=== PATIENT | male | born 1975 | race Caucasian/White ===

== ENCOUNTER 2017-09-04 17:26 | Emergency (ER) | payer SELFPAY ==
[2017-09-04 17:27] VITALS: BP 147/79; PULSE 63; RESP 16; TEMP 36.9; O2SAT 98; BMI 26.6
--- NOTE | 2017-09-04 17:59 | ED.VISSUMM ---
- ER Visit Summary Date of Service: 09/04/17 Chief Complaint: Left shoulder pain History of Present Illness: The patient is a 41 M with no primary care physician. He is right-hand dominant. 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 Reports that he has had pain in his left shoulder for approximately 2 months. He denies any specific injury. No fall or MVA. He reports that he had been working extra hours and really pushing himself prior to the onset of this. He describes it as a sharp pain that is 10 out of 10 with abduction and 1 out of 10 at rest. He is taking ibuprofen consistently for a month without relief. He is also used Biofreeze and icy hot without relief. Patient reports that he has a history of varicose veins. He states that when he gets out of the shower the varicose veins on his medial right thigh are dilated. However, once he begins walking around or lays down this resolves. He denies any pain in his calf. No ankle swelling. No recent travel. No chest pain or shortness of breath. Physical Examination: Vitals: Stable. Afebrile. General: Well-nourished and well-developed. Head: Normocephalic atraumatic. Neck: Supple, no lymphadenopathy. No JVD. Nontender. Cardiovascular: Regular rate and rhythm. No murmurs. Respiratory: No respiratory distress. Clear to auscultation bilaterally. Abdominal: Soft, nontender, nondistended, normal bowel sounds. No guarding, rebound, or peritoneal signs. Back: Nontender. Extremities: Mild tenderness palpation to the most proximal portion of his left humerus. There is no pain in the bicipital groove. There is no overlying erythema or warmth to suggest a septic joint. He has increased pain with abduction that is active. Essentially no pain with passive abduction. He also has pain with external rotation. He has a 2+ radial pulse. Normal sensation to light touch throughout his hand. He does have palpable varicose veins on the medial right thigh. There is no palpable thrombosis. He has no tenderness in his calf. There is no edema. Skin: Normal color, no rash. Neurologic: Alert and oriented ?3. Cranial nerves II through XII are intact. Normal strength and sensation. Psych: Normal affect. Test Results: Left shoulder x-ray shows no acute disease. Emergency Department Course and Treatment: Patient refused pain medications and is resting comfortably. Treatment Plan: He will be given a prescription for 20 Kinta. Patient will be discharged instructions to follow-up with Dr. Lee within a week for another exam. I discussed them the likelihood of a rotator cuff injury and the possibility of physical therapy and/or MRI. Return to the emergency department for any worsening symptoms. Disposition: To home in improved and stable condition. Impression: 1. Left shoulder pain, chronic. 2. Varicose veins. This note was generated with [employer] dictation software. It may contain incorrect words, spelling, and punctuation that were not noted in review of the chart prior to signing ED Disposition - Plan for ED Patient: Chief Complaint: Upper Extremity Injury Instructions: ED Shoulder Pain [facility] Prescriptions: Hydrocodone Bitart/Apap 5-325 [Kinta 5/325] 1 - 2 tablet PO Q4H PRN PRN 5 Days #20 tablet PRN Reason: Pain Referrals: Rickie Lee DO [STAFF PHYSICIAN] - 1 Week
--- NOTE | 2017-09-04 18:12 | RAD_ITS ---
STUDY: X-RAY - LEFT SHOULDER REASON FOR EXAM: Male, 41 years old. Left shoulder pain TECHNIQUE: 4 view(s) of the shoulder. COMPARISON: None. FINDINGS: Normal glenohumeral articulation. Normal acromioclavicular joint. Normal acromion. Normal humeral head and visualized proximal humerus. The soft tissue structures are unremarkable. Normal visualized pulmonary apex. RAD/Shoulder min 2 Views IMPRESSION: Normal x-ray examination of the shoulder. Electronically Signed: Catalino Quevedo MD at 18:28 EDT , Service support ,
--- NOTE | 2017-09-04 18:21 | ED.DCSUM_ITS ---
- ER Visit Summary Date of Service: 09/04/17 Chief Complaint: Left shoulder pain History of Present Illness: The patient is a 41 M with no primary care physician. He is right-hand dominant. 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 Reports that he has had pain in his left shoulder for approximately 2 months. He denies any specific injury. No fall or MVA. He reports that he had been working extra hours and really pushing himself prior to the onset of this. He describes it as a sharp pain that is 10 out of 10 with abduction and 1 out of 10 at rest. He is taking ibuprofen consistently for a month without relief. He is also used Biofreeze and icy hot without relief. Patient reports that he has a history of varicose veins. He states that when he gets out of the shower the varicose veins on his medial right thigh are dilated. However, once he begins walking around or lays down this resolves. He denies any pain in his calf. No ankle swelling. No recent travel. No chest pain or shortness of breath. Physical Examination: Vitals: Stable. Afebrile. General: Well-nourished and well-developed. Head: Normocephalic atraumatic. Neck: Supple, no lymphadenopathy. No JVD. Nontender. Cardiovascular: Regular rate and rhythm. No murmurs. Respiratory: No respiratory distress. Clear to auscultation bilaterally. Abdominal: Soft, nontender, nondistended, normal bowel sounds. No guarding, rebound, or peritoneal signs. Back: Nontender. Extremities: Mild tenderness palpation to the most proximal portion of his left humerus. There is no pain in the bicipital groove. There is no overlying erythema or warmth to suggest a septic joint. He has increased pain with abduction that is active. Essentially no pain with passive abduction. He also has pain with external rotation. He has a 2+ radial pulse. Normal sensation to light touch throughout his hand. He does have palpable varicose veins on the medial right thigh. There is no palpable thrombosis. He has no tenderness in his calf. There is no edema. Skin: Normal color, no rash. Neurologic: Alert and oriented ?3. Cranial nerves II through XII are intact. Normal strength and sensation. Psych: Normal affect. Test Results: Left shoulder x-ray shows no acute disease. Emergency Department Course and Treatment: Patient refused pain medications and is resting comfortably. Treatment Plan: He will be given a prescription for 20 Mikado. Patient will be discharged instructions to follow-up with Dr. Lee within a week for another exam. I discussed them the likelihood of a rotator cuff injury and the possibility of physical therapy and/or MRI. Return to the emergency department for any worsening symptoms. Disposition: To home in improved and stable condition. Impression: 1. Left shoulder pain, chronic. 2. Varicose veins. This note was generated with [employer] dictation software. It may contain incorrect words, spelling, and punctuation that were not noted in review of the chart prior to signing ED Disposition - Plan for ED Patient: Chief Complaint: Upper Extremity Injury Instructions: ED Shoulder Pain [facility] Prescriptions: Hydrocodone Bitart/Apap 5-325 [Mikado 5/325] 1 - 2 tablet PO Q4H PRN PRN 5 Days # 20 tablet PRN Reason: Pain Referrals: Rickie Lee DO [STAFF PHYSICIAN] - 1 Week
[2017-09-04 18:49] VITALS: BP 145/72; PULSE 68; RESP 16; O2SAT 98
== END 2017-09-04 18:45 | disposition home or self-care (01) ==
PROVIDERS: Emergency Provider Emergency Medicine
DX: M25.512 Pain in left shoulder (principal); G89.29 Other chronic pain; I83.91 Asymptomatic varicose veins of right lower extremity
CPT/HCPCS: 73030; 99282

== ENCOUNTER 2019-06-18 10:00 | Emergency (ER) | payer SELFPAY ==
[2019-06-18 10:01] VITALS: BP 205/75; PULSE 46; RESP 18; TEMP 36.1; O2SAT 100; BMI 25.7
[2019-06-18] MEDS: LORazepam 0.5 MG Tablet PO (10:17)
--- NOTE | 2019-06-18 10:38 | ED.DCSUM_ITS ---
History of Present Illness Chief Complaint: Anxiety Informant: Patient Onset: Hours Context: Sudden Onset Timing: Continuous Quality: Mind racing, anxiousness, jitteriness Location: Total body Current Severity: Severe Maximum Severity: Severe Worsened by: Nothing Relieved by: Nothing Associated Symptoms: Palpitations restlessness Narrative: Patient is a 43-year-old male who was seen last evening at outside facility for evaluation of his lower lip incision site. He was diagnosed with skin cancer. He states after going home. He became jittery, mind racing, restlessness and inability to sleep. He states this intermittently happens. He was on anti- anxiolytic. He has not taken an anti-anxiolytic in 1 year. He denies headache. He denies double vision, partial loss or loss of vision. He states he had slight blurred vision driving home. He cannot recall whether it was monocular by ocular. He did not have a headache. He denies trouble with speech or swallowing. He denies neck pain or neck stiffness. He denies motor weakness. Denies problems with balance. He denies chest discomfort. He does report report intermittent shortness of breath. He denies history of hypertension. He states he is very active and may be the reason why his heart rate is low. He is presently going through a divorce. He denies smoking presently. He states he was a former smoker. He rarely has alcohol. And he did admit to prior use of marijuana. He states he has to pay for his own medical care. Prior similar symptoms: Yes Recent Illness/Hospitalization: Yes - Past Medical History (1) Anxiety disorder Status: Acute (2) Skin cancer Status: Acute Past Medical History - Allergies and Home Meds Allergies/Adverse Reactions: Allergies No Known Allergies Allergy (Verified 06/18/19 10:01) Primary Care Physician: Care Physician,No Primary [Primary Care Provider] - Prior records reviewed: Yes Surgical History: - - Recent excision of facial skin cancer Lives: Alone Smoking Status: Former smoker Alcohol: Rare Drugs: - - Previously documented Review of Systems General: Denies: Chills, Fever, Sweats Eyes: Reports: Blurred Vision - bilaterally. Denies: Visual changes - bilaterally, Diplopia ENT: Denies: Rhinorrhea, Sore throat Cardiovascular: Denies: Chest pain, Palpitations Respiratory: Denies: Dyspnea, Cough, Dyspnea on exertion Gastrointestinal: Denies: Abdominal pain, Nausea, Vomiting, Diarrhea, Melena, Hematochezia Genitourinary: Denies: Dysuria, Hematuria, Frequency Musculoskeletal: Denies: Myalgias, Arthralgias, Neck pain, Back pain, Swelling, Extremity Pain Skin: Denies: Rash, Wounds Neurological: Denies: Headache, Weakness, Parasthesia, Numbness, -, - Psych: Reports: Anxiety. Denies: Depression, Suicidal thoughts, Suicidal ideations, -, - Hematologic: Denies: Easy bruising, Easy bleeding Physical Exam Vital Signs/Narrative: Vital Signs Temp Pulse Resp BP Pulse Ox 06/18/19 10:01 97.0 F L 46 L 18 205/75 H 100 Inital Vital Signs reviewed: Yes General: Well nourished, Well developed, Acute Distress Head: Normocephalic, Atraumatic Eyes: Perrl, EOMI. Negative for: Pale conjunctiva, Scleral icterus ENT: Moist mucous membranes, No rhinorrhea, TM's clear, - - Incision site well- healed with sutures in place and no evidence of infection. Neck: Supple, Nontender, No lymphadenopathy, No JVD Cardiovascular: Regular rhythm, No murmurs, Bradycardia Respiratory: No distress, CTA bilaterally, Chest nontender Abdomen: Soft, Nontender, Nondistended, Normal bowel sounds Back: Negative for: Nontender, Normal Inspection Extremities: Nontender, No edema Skin: Normal color, No rash, No Trauma. Negative for: Cyanosis, Diaphoresis, Jaundice Neurological: Alert, Oriented x3, Cranial nerves II-XII grossly intact, Normal Strength, Normal Sensation Psychological: Depressed, Tearful, - - Anxious nervous Diagnostic/Tx/Re-eval - Medical Decision Making Patient was treated with Ativan. Will reassess in 1 hour Was reassessed at 1100. He is no longer crying. He is no longer pacing. He states he feels much better. Plan is referral to crisis center. Consult to case management for follow-up and prescription for Tranxene. ED Disposition - Plan for ED Patient: Disposition: Home or Assisted Living Diagnosis: Panic attack Instructions: Panic Attack Prescriptions: Clorazepate [Tranxene] 7.5 mg PO TID #20 tab Prescription Printed Referrals: Care Physician,No Primary [Primary Care Provider] - Counseling,Center [GROUP OF PHYSICIANS] - As soon as possible
[2019-06-18 11:16] VITALS: BP 140/89; PULSE 45; RESP 17; O2SAT 96
--- NOTE | 2019-06-19 10:35 | CM.ED ---
SOCIAL WORK INFORMANT: DR. PETERS REASON FOR CONSULT: FOLLOW UP ON PATIENT'S VISIT ON 06/18/19 FOR ANXIETY. RECEIVED ORDER FROM DR. PETERS TO FOLLOW UP AND ASSIST WITH REFERRAL TO THE [facility]SELING CENTER. TELEPHONE CALL MADE TO PATIENT. INTRODUCED THIS WORKER'S ROLE AND REASON FOR FOLLOW UP. PATIENT IN AGREEMENT FOR THIS WORKER TO CALL AND ASSIST WITH REFERRAL TO THE [facility]SELING CENTER. PATIENT GAVE VERBAL PERMISSION FOR THIS WORKER TO FAX DEMOGRAPHIC SHEET TO THE COUNSELING CENTER FOR THEM TO REGISTER PATIENT IN THE COMPUTER AND SCHEDULE APPOINTMENT. TELEPHONE CALL TO HAMIDA WITH THE COUNSELING CENTER-[facility]. HAMIDA SALAS WILL CALL PATIENT AND SET UP WALK IN APPOINTMENT FOR PATIENT. PATIENT'S DEMOGRAPHIC INFORMATION FAXED TO THE COUNSELING CENTER AT THIS TIME. TELEPHONE CALL TO PATIENT AND INFORMED SOMEONE FROM THE COUNSELING CENTER WILL BE CONTACTING HIM TO SET UP APPOINTMENT. PATIENT THANKED THIS WORKER AND REPORTED NO FURTHER NEED/CONCERNS AT THIS TIME. Elisa BRADEN, DIVISION HUMAN RESOURCES MANAGER, TRACK MECHANIC.
== END 2019-06-18 11:17 | disposition home or self-care (01) ==
PROVIDERS: Emergency Provider Emergency Medicine
DX: F41.0 Panic disorder [episodic paroxysmal anxiety] (principal); Z87.891 Personal history of nicotine dependence
CPT/HCPCS: 99283